=== PATIENT | female | born 1985 | race African-American/Black ===

== ENCOUNTER 2017-04-10 06:41 | Emergency (ER) | payer MEDICAID ==
[~2017-04-10] VITALS: Ht 157.5 cm; Wt 100.0 kg
[2017-04-10 07:02] VITALS: BP 148/92
== END 2017-04-10 10:40 | disposition home or self-care (01) ==
LOC: ER 06:54
DX: J45.901 Unspecified asthma with (acute) exacerbation (principal)
CPT/HCPCS: 81025; 99283

== ENCOUNTER 2017-06-28 19:16 | Emergency (ER) | payer MEDICAID ==
[~2017-06-28] VITALS: Ht 157.5 cm; Wt 114.3 kg
[2017-06-28] MEDS ORDERED: PREDNISONE 20MG TABLET PO STA (20:15)
[2017-06-28] MEDS ORDERED: ALBUTEROL (0.083%) 2.5MG/3ML NEB HHN STA (20:15)
[2017-06-28] MEDS ORDERED: IPRATROPIUM BROMIDE (0.02%) 0.5MG/2.5ML NEB HHN STA (20:15)
[2017-06-28] MEDS ORDERED: IPRATROPIUM/ALBUTEROL 0.5-3(2.5)MG/3ML NEB ONE (20:31)
[2017-06-28] MEDS ORDERED: ALBUTEROL (0.5%) 2.5MG/0.5ML NEB HHN ONE (20:31)
[2017-06-28 22:17] VITALS: BP 127/85
== END 2017-06-28 22:40 | disposition home or self-care (01) ==
LOC: ER 19:16
DX: J45.901 Unspecified asthma with (acute) exacerbation (principal)
CPT/HCPCS: 81025; 94644; 99285; J7512; J7611; J7620; 94640

== ENCOUNTER 2017-07-30 09:51 | Emergency (ER) | payer MEDICAID ==
[~2017-07-30] VITALS: Ht 157.5 cm; Wt 100.0 kg
[2017-07-30] MEDS ORDERED: IPRATROPIUM BROMIDE (0.02%) 0.5MG/2.5ML NEB HHN STA (11:40)
[2017-07-30] MEDS ORDERED: ALBUTEROL (0.083%) 2.5MG/3ML NEB HHN STA (11:40)
[2017-07-30] MEDS ORDERED: PREDNISONE 20MG TABLET PO STA (11:40)
[2017-07-30 13:38] VITALS: BP 121/72
== END 2017-07-30 13:47 | disposition home or self-care (01) ==
LOC: ER 10:31
DX: J45.901 Unspecified asthma with (acute) exacerbation (principal)
CPT/HCPCS: 81025; 94640; 99283; J7512; J7611

== ENCOUNTER 2017-11-29 03:48 | Emergency (ER) | payer MEDICAID ==
[~2017-11-29] VITALS: Ht 157.5 cm; Wt 111.8 kg
[2017-11-29 03:58] VITALS: BP 122/81
[2017-11-29] MEDS ORDERED: PREDNISONE 20MG TABLET PO ONE (04:15)
[2017-11-29] MEDS ORDERED: IPRATROPIUM/ALBUTEROL 0.5-3(2.5)MG/3ML NEB HHN ONE (04:15)
== END 2017-11-29 05:18 | disposition home or self-care (01) ==
LOC: ER 04:07
DX: J45.901 Unspecified asthma with (acute) exacerbation (principal); R03.0 Elevated blood-pressure reading, without diagnosis of hypertension
CPT/HCPCS: 94640; 99283; J7512; J7620

== ENCOUNTER 2018-02-20 05:11 | Emergency (ER) | payer MEDICAID ==
[~2018-02-20] VITALS: Ht 157.5 cm; Wt 109.0 kg
[2018-02-20] MEDS ORDERED: METHYLPREDNISOLONE SOD SUCC 125 MG/2 ML VIAL IV STA (06:32)
[2018-02-20] MEDS ORDERED: IPRATROPIUM BROMIDE (0.02%) 0.5MG/2.5ML NEB HHN STA (06:32)
[2018-02-20] MEDS ORDERED: ALBUTEROL (0.083%) 2.5MG/3ML NEB HHN STA (06:32)
[2018-02-20 08:23] VITALS: BP 141/73
== END 2018-02-20 08:23 | disposition home or self-care (01) ==
LOC: ER 05:11
DX: J45.901 Unspecified asthma with (acute) exacerbation (principal)
CPT/HCPCS: 71045; 81025; 94640; 96374; 99285; J2930; J7611